=== PATIENT | male | born 1995 | race Caucasian/White ===

== ENCOUNTER 2017-07-20 13:29 | Emergency (ER) | payer OTHER ==
[2017-07-20 13:57] VITALS: BP 142/93; PULSE 80; RESP 16; TEMP 98.3; O2SAT 98
[2017-07-20] MEDS ORDERED: Lidocaine 5% Patch TD STA (14:32)
[2017-07-20] MEDS ORDERED: Lidocaine 5% Patch TD ONE (14:56)
--- NOTE | 2017-07-20 15:22 | ED PDOC ---
HPI: Back Time Seen by Provider: 07/20/17 14:06 Chief Complaint (Nursing): Back Pain Chief Complaint (Provider): Back Pain History Per: Patient History/Exam Limitations: no limitations Onset/Duration Of Symptoms: Days (several weeks) Current Symptoms Are (Timing): Still Present Quality Of Discomfort: "Pain" Additional Complaint(s): Edwar Rush is a 22 year old male, with no significant past medical history , who presents to the emergency department complaining of an atraumatic non- radiating lower back pain onset for the past several weeks. Patient reports pain is worst when getting up from a lying position. Patient states that he did fall back in May but did not seek medical attention and had no immediate pain. Patient further states that for the past x2 weeks, when he wakes up from sleep he has pain to the back of thighs but does not radiate from the back. Patient reports that for the past week he's had atraumatic left ankle pain but as per mother who is at bedside and is an ER nurse, patient does frequently injure his ankle. He denies any dysuria, hematuria, incontinence, abdominal pain , nausea, vomit, b/l calf pain, chest pain and shortness of breath. No further medical complaints. PMD: Jed Jacobson Past Medical History Reviewed: Historical Data, Nursing Documentation, Vital Signs Vital Signs: Last Vital Signs Temp 98.3 F 07/20/17 13:54 Pulse 80 07/20/17 13:54 Resp 16 07/20/17 13:54 BP 142/93 H 07/20/17 13:54 Pulse Ox 98 07/20/17 13:54 - Medical History PMH: No Chronic Diseases - Surgical History Surgical History: Tonsillectomy - Family History Family History: States: No Known Family Hx - Social History Current smoker - smoking cessation education provided: No Alcohol: Social Drugs: Denies - Home Medications Home Medications: Ambulatory Orders Medication Instructions Recorded Ciprofloxacin HCl [Cipro] 500 mg PO BID #20 tab 05/27/14 Metronidazole [Flagyl] 500 mg PO TID #30 tab 05/27/14 Cyclobenzaprine [Cyclobenzaprine 10 mg PO Q8 PRN #30 tab 07/20/17 HCl] Naproxen [Naprosyn] 500 mg PO BID PRN #30 tab 07/20/17 - Allergies Allergies/Adverse Reactions: Allergies Allergy/AdvReac Type Severity Reaction Status Date / Time No Known Allergies Allergy Verified 07/20/17 13:53 Review of Systems ROS Statement: Except As Marked, All Systems Reviewed And Found Negative Cardiovascular: Negative for: Chest Pain Respiratory: Negative for: Shortness of Breath Gastrointestinal: Negative for: Abdominal Pain Genitourinary Male: Negative for: Dysuria, Hematuria Musculoskeletal: Positive for: Back Pain (lower), Leg Pain (back of the thighs pain), Foot Pain (left ankle ) Physical Exam - Reviewed Nursing Documentation Reviewed: Yes Vital Signs Reviewed: Yes - Physical Exam Appears: Positive for: Non-toxic, No Acute Distress Head Exam: Positive for: ATRAUMATIC, NORMOCEPHALIC Skin: Positive for: Normal Color, Warm, Dry Eye Exam: Positive for: Normal appearance, EOMI, PERRL Neck: Positive for: Painless ROM Cardiovascular/Chest: Positive for: Regular Rate, Rhythm. Negative for: Murmur Respiratory: Positive for: Normal Breath Sounds. Negative for: Respiratory Distress Pulses-Dorsalis Pedis (L): 2+ Pulses-Dorsalis Pedis (R): 2+ Gastrointestinal/Abdominal: Positive for: Normal Exam, Soft. Negative for: Tenderness, Guarding, Rebound Back: Positive for: Normal Inspection. Negative for: L CVA Tenderness, R CVA Tenderness, Vertebral Tenderness, Muscle Spasm, Other (straight leg raise test negative) Extremity: Positive for: Swelling (left ankle mild swelling ), Other (b/l thighs normal inspection (No tenderness or swelling); negative Patricia's sign b/l) . Negative for: Tenderness (left ankle, and lateral malleolus. No warmth, erythema or break in skin to the left ankle.), Calf Tenderness (b/l), Deformity (b/l thighs) Neurologic/Psych: Positive for: Alert, Oriented. Negative for: Motor/Sensory Deficits - ECG O2 Sat by Pulse Oximetry: 98 (RA) Pulse Ox Interpretation: Normal - Progress ED Course And Treament: On re-eval, pt. sleeping comfortably. Easily arousable. Reports moderate analgesia. Informed of CT results and x-ray results. Advised to f/u with PMD for further testing and possible MRI. Medical Decision Making Medical Decision Making: Initial Impression: Back pain, Initial Plan: --Lumbar spine w/o contrast [CT] --Flexeril 10 mg PO --Lidoderm 1 ea TD --Toradol 30 mg IM --Ankle left 3 views routine --Urinalysis --Reevaluation ~ Scribe Attestation: Documented by Stewart Metzger, acting as a scribe for Reese Hudson PA-C. Provider Scribe Attestation: All medical record entries made by the Scribe were at my direction and personally dictated by me. I have reviewed the chart and agree that the record accurately reflects my personal performance of the history, physical exam, medical decision making, and the department course for this patient. I have also personally directed, reviewed, and agree with the discharge instructions and disposition. Disposition - Clinical Impression Clinical Impression: Bulging lumbar disc, Ankle arthralgia - Patient ED Disposition Is Patient to be Admitted: No - Disposition Referrals: Henrry Bingham [Outside] Disposition: Routine/Home Disposition Time: 17:30 Condition: STABLE Additional Instructions: Follow up with Dr. Jacobson, PMD, for further evaluation. Return to ED immediately if symptoms worsen. Prescriptions: Cyclobenzaprine [Cyclobenzaprine HCl] 10 mg PO Q8 PRN #30 tab PRN Reason: Muscle Spasm Naproxen [Naprosyn] 500 mg PO BID PRN #30 tab PRN Reason: Pain Instructions: Low Back Pain in Adults, Back Exercises, Joint Pain Forms: [employer] (E[place]ian) Print Language: HONDURAN
[2017-07-20 15:59] LABS: URINE BILIRUBIN NEGATIVE (NEGATIVE); URINE BLOOD NEGATIVE (NEGATIVE); URINE CLARITY CLEAR (Clear); URINE COLOR YELLOW (YELLOW); URINE GLUCOSE (UA) NEG (Normal); URINE LEUKOCYTE ESTERASE NEG Leu/uL (Negative); URINE PROTEIN NEGATIVE (NEGATIVE); URINE UROBILINOGEN 0.2-1.0 mg/dL (0.2-1.0)
[2017-07-20 16:02] LABS: SQUAMOUS EPITHIAL 1 /hpf (0-5); URINE BACTERIA RARE (<OCC)
--- NOTE | 2017-07-20 16:25 | CT ---
PROCEDURE: CT Lumbar Spine without contrast HISTORY: pain COMPARISON: None. TECHNIQUE: Axial computed tomography images were obtained of the lumbar spine without the use of intravenous contrast. Coronal and sagittal reformatted images were created and reviewed. Radiation dose: Total exam DLP = 531.70 mGy-cm. This CT exam was performed using one or more of the following dose reduction techniques: Automated exposure control, adjustment of the mA and/or kV according to patient size, and/or use of iterative reconstruction technique. FINDINGS: VERTEBRAE: Normal lumbar curvature is appreciated. There is no fracture or spondylolisthesis identified. No destructive bony lesion identified. Vertebral body disc interspace heights appear within normal limits with prevertebral just paraspinal soft tissues appearing unremarkable throughout. DISCS/SPINAL CANAL/NEURAL FORAMINA: There is no bony central canal or neural foraminal stenosis appreciated throughout the lumbar spine. Further, no gross disc herniation is identified. MRI is more sensitive in soft tissue resolution for additional evaluation of the intervertebral discs if clinically warranted. Limited disc bulging is encountered at L2-3, L3-4 and L4-5 without significant central canal or neural foraminal stenosis occurring. PARASPINAL SOFT TISSUES: Prevertebral paraspinal soft tissues appear diffusely unremarkable. OTHER FINDINGS: None. IMPRESSION: No fracture or spondylolisthesis with normal curvature evident. No destructive bony lesion. Minimal disc bulging L2-3, L3-4 L4-5 without significant stenosis occurring. No gross disc herniation.
--- NOTE | 2017-07-20 16:27 | RAD ---
PROCEDURE: Left Ankle Radiographs. HISTORY: pain COMPARISON: None FINDINGS: BONES: . No fracture. Prominent posterior os trigonum. JOINTS: Mild anterior tibiotalar arthrosis. . Ankle mortise maintained. Talar dome intact SOFT TISSUES: Possible minimal tibiotalar joint effusion. OTHER FINDINGS: None. IMPRESSION: Anterior tibiotalar joint arthrosis. Possible minimal tibiotalar joint effusion Posterior talar process prominence. Can be seen with a posterior ankle impingement syndrome.
== END 2017-07-20 17:15 | disposition home or self-care (01) ==
LOC: H.ER 13:29
DX: M51.26 Other intervertebral disc displacement, lumbar region (principal); M25.572 Pain in left ankle and joints of left foot
CPT/HCPCS: 72131; 73610; 81003; 96372; 99283; J1885